=== PATIENT | male | born 1980 | race Caucasian/White ===

== ENCOUNTER 2023-07-05 13:29 | Emergency (ER) | payer OTHER, SELFPAY ==
[2023-07-05] VITALS (18 sets, daily range): BP systolic 124–201; BP diastolic 75–125
[2023-07-05 14:15] LABS: % Eosinophils 0.3 % (0-6); % Immature Granulocytes 0.4 % (0-0.5); % Neutrophils 64.3 % (42.2-75.2); Absolute Basophils 0.1 10^3/uL (0-0.2); Absolute Lymphocytes 1.9 10^3/uL (1.2-3.4); Absolute Monocytes 0.6 10^3/uL (0.1-0.6); Absolute Neutrophils 4.7 10^3/uL (1.4-6.5); Hematocrit 46.6 % (39.0-52.0); Mean Corp Hgb Conc. 34.3 g/dL (33.0-37.0); Mean Corpuscular Hgb 30.2 pg (27.0-31.0); Mean Corpuscular Volume 88.1 fL (80.0-94.0); Mean Platelet Volume 10.1 fL (7.4-10.4); Nucleated Red Blood Cells % 0 % (-); Platelet Count 279 10^3/uL (130-400); Red Blood Cell Count 5.29 10^6/uL (4.70-6.10); Red Cell Dist. Width 13.7 % (11.5-14.5); White Blood Cell Count 7.2 10^3/uL (4.8-10.8)
[2023-07-05 14:29] LABS: ALT (SGPT) 26 U/L (0-50); AST (SGOT) 35 U/L (17-59); Albumin 5.3 g/dl (3.5-5.0); Alkaline Phosphatase 65 U/L (38-126); Blood Urea Nitrogen 14 mg/dl (9-20); Calcium 10.1 mg/dl (8.4-10.2); Carbon Dioxide 22 mmol/L (22-30); Chloride 102 mmol/L (98-107); Glucose 139 mg/dl (70-99); Potassium 4.4 mmol/L (3.5-5.1); Sodium 136 mmol/L (135-145); Total Bilirubin 0.7 mg/dl (0.2-1.3); Total Protein 8.5 g/dl (6.3-8.2); eGFR > 60.00
--- NOTE | 2023-07-05 14:31 | ED.GENMED ---
History of Present Illness
<Saida Cordero TECHNOLOGY ARCHITECT - Last Filed: 07/06/23 08:02>
General
Chief Complaint: Heart Rate Problem
Source: patient
Exam Limitations: none
Time Seen by Provider: 07/05/23 14:18
Nursing documentation reviewed up to this point in time: agreed with
Travel History
Have you had any contact with someone who has COVID-19?: No
Do you have any symptoms of coronavirus? Fever > 100 degrees, chills, cough, shortness of breath, sore throat, loss of taste or smell, muscle aches, or headache?: No
History of Present Illness
History of Present Illness:
42 yo male at work at 10 a.m. broke out into a sweat. Two hours later sitting at his desk he developed 'my heart was beating fast' but doesn't know the rate. He felt palpitations and chest felt 'a little tight' and his left hand fingertips felt
tingly. He states these symptoms have persisted and are there now but to a much lesser degree. Denies SOB, abd pain, headache. Denies n/v/d/c.
Past History
<Saida Cordero TECHNOLOGY ARCHITECT - Last Filed: 07/06/23 08:02>
Past History
ED Past Medical History: None
ED Past Surgical History: Tonsilectomy and Other (Hernia repair)
Social History
Tobacco: Non-smoker
Alcohol: Occasional
Personal:
Living: with family
Employment: Employed
Review of Systems
<Saida Cordero TECHNOLOGY ARCHITECT - Last Filed: 07/06/23 08:02>
Review of Systems
Allergies reviewed?: Yes
All Other Systems: ROS reviewed and negative except as documented in HPI and ROS
Constitutional: Denies fatigue
Respiratory: Denies trouble breathing
Cardiac: Reports chest pain, diaphoresis (States he broke out in a sweat 2 hours prior to his palpitations) and palpitations; Denies syncope
ABD/GI: Denies abdominal pain, nausea, diarrhea or anorexia
: Denies dysuria or difficulty voiding
Musculoskeletal: Reports no symptoms
Skin: Reports no symptoms
Neurological: Reports other (Fingers and left hand felt tingly); Denies dizzy, headache or weakness
Phy Exam
<Saida Cordero, TECHNOLOGY ARCHITECT - Last Filed: 07/06/23 08:02>
Physical Exam
Physical Exam:
GENERAL: No acute distress. A&Ox3.
CONSTITUTIONAL: Afebrile.
EYES: PERRL, conjunctivae normal
ENMT: moist mucus membranes, Pharynx nl
RESPIRATORY: Regular respirations, nonlabored, lungs clear.
CARDIOVASCULAR: Regular rate and rhythm, no murmurs, no rubs.
GI: Soft, nontender, normal BS
MUSCULOSKELETAL: Moves with ease. Well perfused.
SKIN: Warm, dry, pink
PSYCH: Normal mood and affect. Well kept, interactive and appropriate
NEUROLOGIC: Awake, alert and oriented. No focal neurological deficits. He looks good.
Course
<Saida Cordero, TECHNOLOGY ARCHITECT - Last Filed: 07/06/23 08:02>
Orders/Labs/Results
Orders:
Orders
07/05/23 13:35
Electrocardiogram (*1) Urgent
Reason for Study: Palpitations
EKG- Treatment ONCE
07/05/23 14:05
Complete Blood Count/With Diff Urgent
Comprehensive Metabolic Panel Urgent
Troponin I Urgent
07/05/23 17:01
Troponin I Urgent
Abnormal Lab Results
07/05/23
14:05
Glucose 139 H mg/dl
(70-99)
Total Protein 8.5 H g/dl
(6.3-8.2)
Albumin 5.3 H g/dl
(3.5-5.0)
07/05/23 14:05
07/05/23 14:05
Vital Signs
Initial and Last Documented VS:
Initial Vital Signs
Pulse Resp BP Pulse Ox
126 18 201/125 98
07/05/23 13:32 07/05/23 13:32 07/05/23 13:32 07/05/23 13:32
Last Documented Vital Signs
Temp Pulse Resp BP Pulse Ox
97.9 F 80 23 147/87 96
07/05/23 14:13 07/05/23 18:09 07/05/23 17:30 07/05/23 18:09 07/05/23 17:30
<Franklyn Murillo PA-C - Last Filed: 07/05/23 18:31>
Orders/Labs/Results
Orders:
Orders
07/05/23 13:35
Electrocardiogram (*1) Urgent
Reason for Study: Palpitations
EKG- Treatment ONCE
07/05/23 14:05
Complete Blood Count/With Diff Urgent
Comprehensive Metabolic Panel Urgent
Troponin I Urgent
07/05/23 17:01
Troponin I Urgent
Abnormal Lab Results
07/05/23
14:05
Glucose 139 H mg/dl
(70-99)
Total Protein 8.5 H g/dl
(6.3-8.2)
Albumin 5.3 H g/dl
(3.5-5.0)
07/05/23 14:05
07/05/23 14:05
Vital Signs
Initial and Last Documented VS:
Initial Vital Signs
Pulse Resp BP Pulse Ox
126 18 201/125 98
07/05/23 13:32 07/05/23 13:32 07/05/23 13:32 07/05/23 13:32
Last Documented Vital Signs
Temp Pulse Resp BP Pulse Ox
97.9 F 80 23 147/87 96
07/05/23 14:13 07/05/23 18:09 07/05/23 17:30 07/05/23 18:09 07/05/23 17:30
<Saida Cordero TECHNOLOGY ARCHITECT - Last Filed: 07/06/23 08:02>
MDM/Problems Addressed
Differential Diagnosis Includes:
ACS, episodic dysrhythmia (SVT)
MDM/Problems Addressed:
42 yo male at work at 10 a.m. broke out into a sweat. Two hours later sitting at his desk he developed 'my heart was beating fast' but doesn't know the rate. He felt palpitations and chest felt 'a little tight' and his left hand fingertips felt
tingly. He states these symptoms have persisted and are there now but to a much lesser degree. Denies SOB, abd pain, headache. Denies n/v/d/c.
EKG: Sinus tach HR 114
Pt reportedly very anxious and shaky on arrival. He admits he thinks he had a panic attack, he has had them in the past
2:31 PM
CBC normal
CMP normal troponin within
Records reviewed: Pt had a normal echocardiogram 2 after possible abnormality on his ekg.
Plan: Check second troponin at 5 PM, if normal he may be discharged
He will follow-up with either his PCP or brake repairer air if his symptoms persist beyond the next 2 weeks.
Return symptoms discussed
Case discussed with Cal GARZA who will check 2nd Troponin and discharge pt if normal
<Saida Cordero TECHNOLOGY ARCHITECT - Last Filed: 07/06/23 08:02>
*EKG
EKG Intrepretation Date: 07/05/23
Interpretation: normal
Rate: tachycardiac
Rhythm: sinus
[place]: normal axis
Interval: normal interval
QRS Pattern: normal QRS
Ischemia: no ischemia
<Franklyn Murillo PA-C - Last Filed: 07/05/23 18:31>
*Critical Care Note
Total Time (30-74mins, 75-104mins- exclusive of procedures): Not Applicable
<Franklyn Murillo PA-C - Last Filed: 07/05/23 18:31>
Update Note
Update Note:
Assumed care of patient from Belen cordero TECHNOLOGY ARCHITECT at shift change 1600. Patient's symptoms highly suspicious for anxiety/psychosomatic. Vital signs normalized while awaiting repeat troponin. Repeat troponin is negative, discharged in stable condition
ED Attending Note
<Saida Cordero NP - Last Filed: 07/06/23 08:02>
-
Portions of this chart may have been created with voice recognition software.� Occasional wrong word or��sound alike� substitutions may have occurred due to the inherent limitations of voice recognition software.
Discharge Plan
Departure
Patient Disposition: Home (Routine Discharge)
Date of Disposition: 07/05/23
Time of Disposition: 18:03
Patient with high blood pressure during this ER visit?: No
Condition: Good
Discharge Problem:
Heart palpitations
Instructions: Relaxation Techniques, Palpitations (DC), Anxiety, Adult ED
Referrals:
Janak Schuster, [Family Provider] - As needed
Jimenez Rizvi MD [Active] - As needed
Activity Restrictions/Additional Instructions:
As we discussed, your workup here today shows nothing worrisome.
If your palpitations persist beyond a week or start to occur more frequently, see your doctor or the brake repairer air.
If they persist despite relaxation techniques or rest, and are associated with feeling lightheaded, dizzy, chest pain, shortness of breath return here immediately for evaluation.
Interventions
Interventions:
*Risk Screen - Suicide Last Done: 07/05/23 13:32
*General Assessment Last Done: 07/05/23 13:32
*Neglect/Abuse Screening Last Done: 07/05/23 13:32
*ED COVID-19 Vaccine History Last Done: 07/05/23 14:12
*Nursing Disposition Last Done: 07/05/23 18:09
ED- Cardiac Assessment Last Done: 07/05/23 14:12
ED- Pulmonary Assessment Last Done: 07/05/23 14:12
Discharge Date and Time
Discharge Date/Time: 07/05/23 18:10
Print Language: PORTUGUESE
[2023-07-05 14:38] LABS: Troponin I < 0.012 ng/ml
[2023-07-05 17:37] LABS: Troponin I < 0.012 ng/ml
== END 2023-07-05 18:10 | disposition home or self-care (01) ==
LOC: EMR 13:29
PROVIDERS: Registered Nurse; EMERGENCY PHYSICIAN Emergency Medicine; FAMILY PHYSICIAN Family Medicine
DX: R00.2 Palpitations (principal); R07.9 Chest pain, unspecified; R61 Generalized hyperhidrosis
CPT/HCPCS: 99284; 80053; 84484; 85025; 93005